=== PATIENT | female | born 1940 | race Caucasian/White ===

== ENCOUNTER 2021-03-04 21:48 | Emergency (ER) | payer MEDICARE ==
[~2021-03-04] VITALS: Ht 165.1 cm; Wt 58.6 kg
[2021-03-04] MEDS ORDERED: ASPI-1450 GT (22:12)
[2021-03-04] MEDS ORDERED: FURO40 PO (22:12)
[2021-03-04] MEDS ORDERED: OXYC5TAB3 GT (22:12)
[2021-03-04] MEDS ORDERED: ALBU8HFA IH (22:12)
[2021-03-04] MEDS ORDERED: LEVO112T4 GT (22:12)
[2021-03-04] MEDS ORDERED: TIOT185 IH (22:12)
[2021-03-04] MEDS ORDERED: METO25 GT (22:12)
[2021-03-04] MEDS ORDERED: SENN8.6T20 GT (22:12)
[2021-03-04] MEDS ORDERED: POTA20LI36 GT (22:12)
[2021-03-04] MEDS ORDERED: GABA-1216 PO (22:12)
[2021-03-04] MEDS ORDERED: MORPHINE SULFATE 4 MG/ML SYRINGE IVP ONE (22:15)
[2021-03-04] MEDS ORDERED: SODIUM CHLORIDE 0.9% 1,000 ML IV ONE (22:15)
[2021-03-04 22:23] LABS: BASOPHILS % (AUTO) 0.9 % (0.0-2.0); EOSINOPHILS % (AUTO) 4.4 % (1.0-6.0); HEMATOCRIT 34.8 % (36-46); HEMOGLOBIN 11.4 g/dL (12.0-16.0); LYMPHOCYTES # (AUTO) 1.3 K/uL (1.0-4.8); LYMPHOCYTES % (AUTO) 20.4 % (22.0-44.0); MEAN CORPUSCULAR HEMOGLOBIN 29.2 pg (26.0-34.0); MEAN CORPUSCULAR HGB CONC 32.8 G/dL (31.0-37.0); MEAN CORPUSCULAR VOLUME 89 fL (80-100); MONOCYTES # (AUTO) 0.9 K/uL (0.1-1.0); MONOCYTES % (AUTO) 13.1 % (2.0-9.0); NEUTROPHILS % (AUTO) 61.2 % (40.0-70.0); PLATELET COUNT (AUTO) 212 K/uL (150-450); RED CELL DISTRIBUTION WIDTH 14.6 % (11.5-14.5)
[2021-03-04 22:27] LABS: ANION GAP 3 mmol/L (8-16); CALCIUM, TOTAL 8.3 mg/dL (8.8-10.5); CARBON DIOXIDE 31 mmol/L (22-29); CHLORIDE 105 mmol/L (98-107); CREATININE 0.81 mg/dL (0.60-1.30); GLUCOSE,RANDOM 99 mg/dL (70-110); POTASSIUM 4.2 mmol/L (3.5-5.1); SODIUM SERUM 139 mmol/L (136-145); UREA NITROGEN, BLOOD 19 mg/dL (7-18)
[2021-03-04 22:28] LABS: GLOMERULAR FILTR. RATE CALC > 60 mL/min (>60)
[2021-03-04 22:31] LABS: ALANINE AMINOTRANSFERASE 18 U/L (12-78); ALBUMIN 3.2 g/dL (3.4-5.0); ALKALINE PHOSPHATASE 75 U/L (46-116); ASPARTATE AMINOTRANSFERASE 19 U/L (15-37); BILIRUBIN,TOTAL 0.3 mg/dL (0.1-1.0); LIPASE 142 U/L (73-393); TOTAL PROTEIN, SERUM 6.7 g/dL (6.4-8.2)
[2021-03-04] MEDS ORDERED: SODIUM CHLORIDE 0.9% 100 ML ONE (23:04)
[2021-03-04] MEDS ORDERED: IOHEXOL 350 MG/ML 100 ML VIAL ONE (23:04)
[2021-03-05 01:00] VITALS: BP 120/66
== END 2021-03-05 02:50 | disposition home or self-care (01) ==
LOC: EDUNIT# 21:48 → EMS 21:50
DX: G89.18 Other acute postprocedural pain (principal)
CPT/HCPCS: 36415; 74177; 80053; 83690; 85025; 96361; 96374; 99285; J2270; J7030; J7050; Q9967